=== PATIENT | male | born 1945 | race Caucasian/White ===

== ENCOUNTER 2019-07-18 13:29 | Outpatient (CLI) | payer MEDICARE | END 2019-07-18 13:30 | disposition home or self-care (01) | LOC: CTENTCT 13:29 | PROVIDERS: ATTEND Otolaryngology Plastic Surgery within the Head & Neck | DX: J32.9 Chronic sinusitis, unspecified (principal) | CPT/HCPCS: 70486 ==

== ENCOUNTER 2019-09-30 13:07 | Outpatient (CLI) | payer MEDICARE ==
--- NOTE | 2019-09-30 15:04 | MRI ---
BRAIN MRI WITH AND WITHOUT CONTRAST: HISTORY: Left ear sensorineural hearing loss. Prostate cancer. Chemotherapy. COMPARISON: None. FINDINGS: MRI BRAIN WITH AND WITHOUT CONTRAST: Hemorrhage: No parenchymal hemorrhage. No extra-axial hematoma. Calvarium: Appropriate T1 marrow signal intensity. Midline brain parenchyma: Unremarkable. Cerebrum:No parenchymal mass, mass effect or midline shift. Age-appropriate brain volume. T2 and FLAI R white matter hyperintensities are presumed to be due to chronic small vessel ischemic change. Ventricles: No evidence of hydrocephalus. Sinuses and mastoid air cells: Mild mucosal thickening in the paranasal sinuses. Diffusion: Central arterial flow is maintained. Absent restricted diffusion. Postcontrast images: No pathologic enhancement of the brain parenchyma. IAC MRI WITH AND WITHOUT CONTRAST: There is symmetric signal intensity of the internal auditory canal and inner ear structures. There is symmetric signal intensity of the 7th-8th and 5th cranial nerve complexes. IMPRESSION: 1. White matter hyperintensities on the axial T2 and FLAIR sequence due to chronic small vessel ische mando change. 2. Absent restricted diffusion. No acute infarct. 3. No pathologic enhancement of the brain parenchyma. 4. Unremarkable MRI of the internal artery canal and inner ear structures. No abnormal enhancement. Transcribed Date/Time: 09/30/2019 3:39 PM
== END 2019-09-30 13:08 | disposition home or self-care (01) ==
LOC: MRI 13:07
PROVIDERS: ATTEND Otolaryngology Plastic Surgery within the Head & Neck
DX: H90.42 Sensorineural hearing loss, unilateral, left ear, with unrestricted hearing on the contralateral side (principal)
CPT/HCPCS: 70553; 82565